=== PATIENT | female | born 1985 | race Caucasian/White ===

== ENCOUNTER 2024-04-06 13:01 | Emergency (ER) | payer MEDICAID ==
[~2024-04-06] VITALS: Ht 167.6 cm; Wt 73.0 kg
[2024-04-06 13:49] VITALS: O2SAT 99
[2024-04-06 13:54] VITALS: BP 106/80; PULSE 74; RESP 16; TEMP 97.8; O2SAT 98
[2024-04-06 15:50] LABS: BASOPHILS % 0.2 % (0.0-2.0); EOSINOPHILS % 1.2 % (0.0-5.0); HEMATOCRIT. 42.1 % (36.0-48.0); HEMOGLOBIN. 13.9 g/dL (12.0-16.0); LYMPHOCYTES % 13.1 % (20.0-50.0); MEAN CORPUSCULAR HEMOGLOBIN 29.4 pg (28.0-32.0); MEAN CORPUSCULAR VOLUME 89.3 fL (81.0-99.0); MEAN PLATELET VOLUME 8.8 fl (7.4-10.4); MONOCYTES % 5.3 % (2.0-8.0); NEUTROPHILS % 80.2 % (40.0-76.0); PLATELET 392 x1000/uL (130-400); RED BLOOD CELL COUNT 4.71 mill/uL (4.2-5.4); RED CELL DISTRIBUTION WIDTH 13.4 % (11.6-14.6); WHITE BLOOD COUNT 12.4 x1000/uL (4.5-11.0)
[2024-04-06 15:55] LABS: CHLORIDE 105 mEq/L (98-107); SODIUM 138 mEq/L (136-145)
[2024-04-06 15:56] LABS: CALCIUM 9.9 mg/dL (8.7-10.4); CARBON DIOXIDE 24 mEq/L (21-32)
[2024-04-06 16:01] LABS: CREATININE 0.8 mg/dL (0.6-1.0); GLUCOSE 122 mg/dL (70-105); UREA NITROGEN BLOOD 15 mg/dL (9-23)
[2024-04-06 16:21] LABS: HCG SCREEN NEGATIVE
== END 2024-04-06 17:04 | disposition home or self-care (01) ==
LOC: ER 13:31
DX: R42 Dizziness and giddiness (principal); R20.2 Paresthesia of skin; Z90.49 Acquired absence of other specified parts of digestive tract
CPT/HCPCS: 36415; 71045; 80048; 84703; 85025; 93005; 99285